=== PATIENT | male | born 1960 | race Caucasian/White ===

== ENCOUNTER 2022-02-22 07:35 | Outpatient (CLI) | payer BC, SELFPAY ==
--- NOTE | ~2022-02-22 | US_ITS ---
EXAMINATION: US retroperitoneal comp DATE: 02/22/2022 11:03 INDICATION: Stage IV chronic kidney disease TECHNIQUE: Multiple ultrasound grayscale images of the kidneys were obtained. COMPARISON: None. FINDINGS: The right kidney measures 15.1 x 6.4 x 5.2 cm. The left kidney measures 12.0 x 6.4 x 5.9 cm. The kidn eys demonstrate normal echogenicity. Severe bilateral hydronephrosis. In addition there is a 2.9 cm a nechoic cyst at the mid right kidney. No stones identified. Common at distention of the otherwise nor mal-appearing bladder. No ureteral jets visualized in the bladder on color Doppler. Incidentally note d is increased echogenicity of the liver consistent with diffuse hepatic steatosis.. IMPRESSION: 1. Prominent distention of the bladder with severe bilateral hydronephrosis which suggests either ch ronic bladder outlet obstruction or neurogenic bladder. 2. Diffuse hepatic steatosis. Reviewed, dictated and finalized at location A. IMPRESSION: 1. Prominent distention of the bladder with severe bilateral hydronephrosis wh ich suggests either chronic bladder outlet obstruction or neurogenic bladder. 2. Diffuse hepatic steatosis.
== END 2022-02-22 07:36 | disposition home or self-care (01) ==
LOC: ANHIMG 07:37
PROVIDERS: PCP Internal Medicine; Visit Provider Internal Medicine
DX: N18.4 Chronic kidney disease, stage 4 (severe) (principal); K76.0 Fatty (change of) liver, not elsewhere classified
CPT/HCPCS: 76770

== ENCOUNTER 2022-06-05 07:33 | Outpatient (CLI) | payer BC, SELFPAY ==
--- NOTE | ~2022-06-05 | US_ITS ---
EXAMINATION: US renal BI, US retroperitoneal duplex ltd DATE: 06/05/2022 08:56 INDICATION: Stage IV chronic kidney disease. Hypertension. TECHNIQUE: 1. Multiple grayscale and color Doppler images of the kidneys were obtained. 2. Multiple grayscale and pulsed Doppler images of the aorta and renal arteries were obtained. COMPARISON: 02/22/2022 FINDINGS: Kidneys: The right kidney measures 10.6 x 5.0 x 4.9 cm. The left kidney measures 12.5 x 6.6 x 6.0 cm. The kidn eys demonstrate normal echogenicity. 2.0 cm exophytic cyst at the interpolar region of the right kidn ey. Again seen is severe bilateral hydronephrosis with some interval improvement on the right.. No s tones identified. The bladder is distended with bilateral ureteral jets visualized with color Doppler .. Renal arteries/vascular: The aorta peak systolic velocity is 126 cm/s. The right renal artery peak systolic velocity is 102 cm /s in the proximal segment, 46 cm/s in the mid segment, and 61 cm/s in the distal segment. The left r enal artery peak systolic velocity is 210 cm/s in the proximal segment, 58 cm/s in the mid segment, a nd 40 cm/s in the distal segment. IMPRESSION: 1. Persistent prominent distention of the bladder with severe bilateral hydronephrosis despite the pr esence of bilateral ureteral jets which suggests either bladder outlet obstruction or neurogenic blad ezequiel. 2. Elevated peak systolic velocities at the proximal left renal artery consistent with a >50-60% sten osis. Reviewed, dictated and finalized at location L. ESS ASSOCIATE IMPRESSION: 1. Persistent prominent distention of the bladder with severe bilateral hydrone phrosis despite the presence of bilateral ureteral jets which suggests either b ladder outlet obstruction or neurogenic bladder. 2. Elevated peak systolic velocities at the proximal left renal artery consiste nt with a >50-60% stenosis.
== END 2022-06-05 07:34 | disposition home or self-care (01) ==
PROVIDERS: PCP Internal Medicine; Visit Provider Internal Medicine Nephrology
DX: I12.9 Hypertensive chronic kidney disease with stage 1 through stage 4 chronic kidney disease, or unspecified chronic kidney disease (principal); N18.4 Chronic kidney disease, stage 4 (severe)
CPT/HCPCS: 76775; 93976

== ENCOUNTER → 2023-04-10 07:37 | Outpatient (CLI) | payer BC, SELFPAY ==
--- NOTE | ~2023-04-10 | US_ITS ---
US renal BI 04/10/2023 08:29 Procedure: Realtime transabdominal ultrasound of the kidneys and bladder. Indication: Atonic motor neuropathic bladder. Hypertension. Chronic renal disease. Comparison: Ultrasound dated 06/05/2022 Findings: There is severe right hydronephrosis. There is 1.6 cm right renal cyst. Left renal echotext ure is normal. There is severe left hydronephrosis. There is right renal jet identified. No enlargeme nt of the prostate gland. Prevoid volume in the bladder is 929 cc. Postvoid volume 670 cc. Impression: 1: Severe bilateral hydronephrosis. 2: Large post void residual measures 670 cc. Reviewed, dictated and finalized at location B. Impression: 1: Severe bilateral hydronephrosis. 2: Large post void residual measures 670 cc.
== END ==
PROVIDERS: PCP Internal Medicine; Visit Provider Internal Medicine Nephrology
DX: N31.2 Flaccid neuropathic bladder, not elsewhere classified (principal); I12.9 Hypertensive chronic kidney disease with stage 1 through stage 4 chronic kidney disease, or unspecified chronic kidney disease; N18.4 Chronic kidney disease, stage 4 (severe); R31.9 Hematuria, unspecified; R80.9 Proteinuria, unspecified
CPT/HCPCS: 76775

== ENCOUNTER 2023-04-24 13:24 | Emergency (ER) | payer BC, SELFPAY ==
[2023-04-24 13:29] VITALS: BP 145/72; PULSE 109; RESP 20; TEMP 36.3; O2SAT 98
--- NOTE | 2023-04-24 14:30 | PC.NURSE ---
pt c/o intense pain with bladder irrigated with 60 cc of ns. states lee from tip of his penis and [facility] down. unable to tolerate. dr. chris notified.
[2023-04-24 14:40] LABS: Appearance Urine Cloudy (Clear); Bilirubin Urine 1+ (Negative); Blood Urine 3+ (Negative); Color Urine Red (Yellow); Glucose Urine UA Negative (Negative); Ketones Urine Negative (Negative); Leukocyte Esterase Ur 1+ LEU/UL (Negative); Nitrate Urine Negative (Negative); Protein Urine 3+ mg/dL (Negative); Urobilinogen Urine 0.2 mg/dL (<2.0); pH Urine 6.5 (5.0-9.0)
--- NOTE | 2023-04-24 14:54 | ED.MALEGU ---
HPI - Male Genitourinary General Chief complaint: Urogenital-Male Stated complaint: catheter problems Time Seen by Provider: 04/24/23 14:08 History of Present Illness HPI Narrative: Patient is a 62-year-old male with history of urinary retention who intermittently self caths who presents ER with hematuria. He had a Hendrix catheter placed 2 days ago so he could have a nuc med study tomorrow. When it was placed he was found to have UTI and started on Bactrim. He also had blood started coming out of the catheter. The blood was clearing up the urine and the catheter was clear this morning. After going to work he started bleeding again. There was some clots passed as well. Anytime he feels movement he has pain in his penis and suprapubic region. Related Data Allergies Allergy/AdvReac Type Severity Reaction Status Date / Time No Known Allergies Allergy Verified 04/24/23 14:55 Review of Systems Constitutional: Constitutional: Denies chills and Denies fever(s) Gastrointestinal: Gastrointestinal: Denies abdominal pain, Denies nausea and Denies vomiting Genitourinary: Genitourinary: Reports hematuria, Denies testicular pain and Denies urinary frequency PMFSH Past Medical History Medical History (Updated 04/24/23 @ 16:20 by Alec Vogel MD) HTN (hypertension) Right arm fracture Surgical History Surgical History (Updated 06/16/19 @ 19:17 by Trever Breaux) History of open reduction and internal fixation (ORIF) procedure RUE Social History Social History (Updated 06/16/19 @ 19:18 by Trever Breaux) Smoking status: Never smoker Exam Narrative: GENERAL: Well-appearing, well-nourished, and in no acute distress. HEAD: Normocephalic, atraumatic. CHEST: Clear to auscultation. No respiratory distress. HEART: Regular rate and rhythm. N Normal peripheral pulses. ABDOMEN: Soft, nontender, nondistended. : Normal-appearing penis with Hendrix catheter coming from the urethra. There is clear and bloody urine present in the leg bag. EXTREMITIES: Normal range of motion. No edema. NEURO: Alert and oriented x3. PSYCH: Normal mood and affect. Course Course Emergency Course: Discussed case with Juan David with urology. Recommend starting ditropan for bladder spasm for pain. Continue antibiotics. Vital Signs Vital signs: Vital Signs Temperature 97.4 F L 04/24/23 13:29 Pulse Rate 109 H 04/24/23 13:29 Respiratory Rate 20 04/24/23 13:29 Blood Pressure 145/72 H 04/24/23 13:29 Pulse Oximetry 98 04/24/23 13:29 Oxygen Delivery Room Air 04/24/23 13:29 Temperature 97.4 F L 04/24/23 13:29 Pulse Rate 109 H 04/24/23 13:29 Respiratory Rate 20 04/24/23 13:29 Blood Pressure 145/72 H 04/24/23 13:29 Pulse Oximetry 98 04/24/23 13:29 Oxygen Delivery Room Air 04/24/23 13:29 MDM - Male Genitourinary Lab Data Labs: Lab Results 04/24/23 Range/Units 14:21 Urine Color Red H (Yellow) Urine Appearance Cloudy H (Clear) Urine pH 6.5 (5.0-9.0) Ur Specific [place] 1.020 (1.001-1.035) Urine Protein 3+ H (Negative) mg/dL Urine Glucose (UA) Negative (Negative) mg/dL Urine Ketones Negative (Negative) mg/dL Ur Blood (Man) 3+ H (Negative) Urine Nitrate Negative (Negative) Urine Bilirubin 1+ H (Negative) Urine Urobilinogen 0.2 (<2.0) mg/dL Add Ur Microanalysis Reviewed Leukocyte Esterase Rfl 1+ H (Negative) LUDIVINA/UL Urine RBC >100 H (0-2) /hpf Urine WBC >100 H /hpf Ur Squamous Epith Cells None seen (Few) /hpf Urine Bacteria 1+ H /hpf Urine Casts 0-2 Urine Characteristics Clots Discharge Plan Discharge Clinical Impression: Bladder spasm, Hematuria Patient Disposition: Home, Self-Care Condition: Stable Instructions: Hematuria (ED) Additional Instructions: It is felt your pain is related to bladder spasms. Take Ditropan 3 times a day to help wi
[2023-04-24 14:55] LABS: Bacteria Urine 1+ /hpf; Need Manual Microscopic Reviewed; Non Pathogenic Casts 0-2; RBC Urine >100 /hpf (0-2); Squamous Epithelial Cell Urine None seen /hpf (Few); WBC Urine >100 /hpf
[2023-04-24 14:56] LABS: Add Urine Microscopic? YES
[2023-04-24] MEDS: oxyBUTYnin CHLORIDE 5 MG TABLET PO (15:12)
== END 2023-04-24 16:40 | disposition home or self-care (01) ==
PROVIDERS: Emergency Provider Emergency Medicine; PCP Internal Medicine
DX: R31.9 Hematuria, unspecified (principal); N32.89 Other specified disorders of bladder; I10 Essential (primary) hypertension
CPT/HCPCS: 81001; 87086; 99283; A9270

== ENCOUNTER 2023-04-25 12:43 | Outpatient (CLI) | payer BC, SELFPAY ==
--- NOTE | ~2023-04-25 | NM_ITS ---
EXAMINATION: JIA balderas renal scan DATE: 04/25/2023 14:07 INDICATION: Bilateral hydronephrosis TECHNIQUE: 7.8 mCi Tc-99m MAG3 was administered IV. 40 mg furosemide was administered IV immediately afterward. A posterior abdominal radionuclide angiogram was obtained. A subsequent time course of st atic images of the kidneys, ureters, and bladder was obtained. COMPARISON: None FINDINGS: The posterior abdominal radionuclide angiogram and sequential static images show normal size, positio n, and morphology of the kidneys. Peak renal parenchymal uptake was 15.5 min in left kidney and 28.5 min in right kidney (normal peak 3-5 minutes). The relative early renal uptake was 69% on the left a nd 31% on the right (<40% is abnormal). No abnormalities of the ureters or bladder are seen. T1/2 for clearance of activity from the left kidney and proximal collecting system was >30 minutes. T1/2 for clearance of activity from the right kidney and proximal collecting system was indeterminate with continually rising activity curve . Notes on interpretation: T1/2 <10 minutes is normal, 10-15 minutes is low grade obstruction of questi onable clinical significance, 15-20 minutes is partial obstruction that is likely clinically signific ant, >20 minutes is high grade obstruction. Note that false positives may be seen with supine positio sierra, dehydration, severely dilated nonobstructed kidney, atonic collecting system, poor renal functi on, and chronic furosemide use. IMPRESSION: 1. Decreased left renal function which contributes only 31% of total renal activity. 2. Severely delayed activity clearance from both kidneys, right greater than left which could be due to high-grade obstruction with bilaterally suggesting at the level of the bladder/bladder outlet, di lated atonic collecting system, poor renal function or some combination thereof. Reviewed, dictated and finalized at location A. BERRY FARM SUPERVISOR IMPRESSION: 1. Decreased left renal function which contributes only 31% of total renal act ivity. 2. Severely delayed activity clearance from both kidneys, right greater than l eft which could be due to high-grade obstruction with bilaterally suggesting at the level of the bladder/bladder outlet, dilated atonic collecting system, poo r renal function or some combination thereof.
== END 2023-04-25 12:44 | disposition home or self-care (01) ==
PROVIDERS: PCP Internal Medicine; Visit Provider Urology
DX: N13.30 Unspecified hydronephrosis (principal)
CPT/HCPCS: 78708; A9562; J1940

== ENCOUNTER 2023-11-05 09:55 | Emergency (ER) | payer BC, SELFPAY ==
[2023-11-05] VITALS (14 sets, daily range): BP systolic 97–134; BP diastolic 74–89; PULSE 68–97; RESP 12–21; TEMP 37; O2SAT 96–100
--- NOTE | ~2023-11-05 | XR_ITS ---
Clinical Indication: Chest pain PA and lateral views of the chest: Comparison: None Findings: The lungs are clear, without evidence of focal consolidation or pleural effusion. Cardiome diastinal silhouette is within normal limits. Bones and soft tissues are unremarkable. Impression: Normal chest. Reviewed, dictated and finalized at location . Impression: Normal chest.
--- NOTE | ~2023-11-05 | CT_ITS ---
EXAMINATION: CT abdomen pelvis wo con DATE: 11/05/2023 11:09 INDICATION: Abdominal pain. Nausea and vomiting. TECHNIQUE: Computed tomography (CT) of the abdomen and pelvis was performed without intravenous contr ast. Automated exposure control and iterative reconstruction technique were employed. The dose-length product was 614.41 mGy-cm. COMPARISON: None. FINDINGS: The visualized portions of the lung bases demonstrate mild atelectasis. No pleural effusion . The heart size is normal. There are coronary artery calcifications. No pericardial effusion. There is diffuse hepatic steatosis. The gallbladder, spleen, pancreas, and adrenal glands are normal. There is cortical thinning of the kidneys. There is a 12 mm cyst in right kidney. There is a 2 mm stone ri ght kidney. There is mild left hydronephrosis. There is diffuse bladder wall thickening, likely secon charis to chronic outlet obstruction from the moderately enlarged prostate. There are bilateral inguina l hernias containing fat. There is diverticulosis of the colon without evidence of diverticulitis. Th ere are no dilated loops of bowel. The appendix is normal. There is calcified atherosclerosis of the aorta and many of the other arteries. There is no free intraperitoneal fluid. 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 There is 11 mm anterolisthesis of L4 on L5. There is severe lumbar spondylosis . IMPRESSION: 1. Mild left hydronephrosis. 2. Diffuse hepatic steatosis. 3. Bilateral inguinal hernias containing fat. Reviewed, dictated and finalized at location A.
--- NOTE | 2023-11-05 09:57 | ECG_ITS ---
SEE SCANNED COPY FOR CONFIRMED REPORT MTDD
--- NOTE | 2023-11-05 10:03 | ED.CHESTPAIN ---
HPI - Chest Pain General Chief Complaint: Chest Pain Stated Complaint: CP Time Seen by Provider: 11/05/23 09:58 History of Present Illness HPI narrative: Patient states that for the last week he has been having intermittent chest pain, on Saturday he actually passed out several times, and threw up black emesis and had dark stools, he is describing some discomfort around his chest and that he had been told he had kidney failure and elevated troponin. Has not had any nausea vomiting since Saturday Related Data Allergies Allergy/AdvReac Type Severity Reaction Status Date / Time No Known Allergies Allergy Verified 11/05/23 10:10 Review of Systems Review of Systems: All systems reviewed & are unremarkable except as noted in HPI and below PMFSH Past Medical History Medical History (Updated 11/05/23 @ 13:41 by Brenda Iverson MD) HTN (hypertension) Right arm fracture Surgical History Surgical History (Updated 06/16/19 @ 19:17 by Trever Breaux) History of open reduction and internal fixation (ORIF) procedure RUE Social History Social History (Updated 06/16/19 @ 19:18 by Trever Breaxu) Smoking status: Never smoker Exam Narrative: EXAMINATION OF ORGAN SYSTEMS/BODY AREAS: Constitutional: Vital signs per nursing GENERAL:[No acute distress, non-toxic appearing.] HEAD: Normal with no signs of head trauma. EYES: EOMI, conjunctiva normal ENT: Hearing grossly intact LUNGS: Nonlabored breathing. HEART: [Regular rate and rhythm] ABD: [Soft], [nontender to palpation] RECTAL: Some hemorrhoids but no tenderness; no stool in vault. EXT: Normal range of motion SKIN: [No rashes or lesions.] NEURO: [Alert and oriented x 3. No gross focal sensory or strength deficits.] PSYCH: Normal affect Course Vital Signs Vital signs: Vital Signs Temperature 98.6 F 11/05/23 10:00 Pulse Rate 97 11/05/23 10:00 Respiratory Rate 14 11/05/23 10:00 Blood Pressure 134/86 11/05/23 10:00 Pulse Oximetry 99 11/05/23 10:00 Oxygen Delivery Room Air 11/05/23 10:00 Temperature 98.6 F 11/05/23 10:00 Pulse Rate 76 11/05/23 13:55 Respiratory Rate 15 11/05/23 13:55 Blood Pressure 130/89 11/05/23 13:55 Pulse Oximetry 99 11/05/23 13:55 Oxygen Delivery Room Air 11/05/23 10:00 MDM - Chest Pain MDM Narrative Medical decision making narrative: Patient presents here after he had an episode of syncope, chest discomfort, and possible nausea and vomiting with dark vomit and stool 3 days ago. Currently asymptomatic. He had labs done outpatient with pain and at bedside was worried that his hematocrit was low and his troponin was high. Well-appearing here, in no distress, normal exam including soft, nontender abdomen, no bloody stool on exam. I will obtain a CT abdomen/pelvis, without contrast due to his kidney disease. Patient's initially requested a CT with contrast I did explain that patient has no active GI bleeding at this time and his hemoglobin is stable so it was unlikely detect anything significant, and is there is a potential possibility for contrast induced nephropathy with his creatinine of 3.0 but that if they would like to have contrast and are willing to provide consent that the and understand the risks and benefits I will order it. After some discussion they decided to just have the CT without contrast. This is unremarkable for acute abnormality. Troponins were negative twice here and patient is asymptomatic with normal EKG. Hemoglobin was within acceptable limits. I did ask to see the lab findings she was concerned about, and saw that it was about hematocrit that was barely lower than normal, and a high sensitivity troponin that was barely above negative range. Given this I feel more reassured. I do feel patient is safe for discharge at this time with strict return precautions and follow-up to his primary care doctor, student services director, territory account manager. Long discussion with kaylie
[2023-11-05 10:07] LABS: Basophils Absolute Auto 0.1 K/mm3 (0.0-0.1); Basophils Percent Auto 0.4 % (0.2-1.2); Eosinophils Absolute Auto 0.2 K/mm3 (0-0.3); Eosinophils Percent Auto 1.8 % (0-4.4); Hematocrit 40.3 % (42.0-52.0); Hemoglobin 13.4 g/dL (14.0-18.0); Immature Granulocyte Absolute 0.05 K/mm3 (0.00-0.031); Immature Granulocyte Percent A 0.4 % (0-0.5); Lymphocytes Absolute Auto 1.98 K/mm3 (0.9-3.2); Lymphocytes Percent Auto 16.5 % (18.3-44.2); Mean Corpuscular HGB Conc 33.3 g/dl (32-36); Mean Corpuscular Hemoglobin 29.7 pg (26-34); Mean Corpuscular Volume 89.4 fl (80-100); Mean Platelet Volume 10.5 fl (7.4-10.4); Monocytes Percent Auto 8.4 % (2.6-8.5); Neutrophils Absolute Auto 8.7 K/mm3 (1.3-6.7); Neutrophils Percent Auto 72.5 % (45.5-73.1); Platelet Count Result 223 k/mm3 (150-375); Red Blood Count 4.51 M/mm3 (4.6-6.20); Red Cell Distribution Width 13.8 % (11.5-14.5)
[2023-11-05 10:18] LABS: Alanine Aminotransferase 27 U/L (6-50); Albumin Level 4.9 g/dL (3.5-5.1); Alkaline Phosphatase 70 U/L (38-126); Anion Gap 10 mmol/L (4-12); Aspartate Amino Transferase 31 U/L (17-59); Bilirubin,Total 0.9 mg/dL (0.2-1.3); Blood Urea Nitrogen 50 mg/dL (9-20); Carbon Dioxide 24 mmol/L (22-30); Chloride 100 mmol/L (98-107); Estimated CRCL calculation 25 ml/min; Estimated Glomerular Filt Rate 21; Glucose 116 mg/dL (65-110); Lipase 242 U/L (23-300); Prothrombin Time 13.3 Seconds (11.1-14.7); Sodium 134 mmol/L (137-145)
[2023-11-05 10:19] LABS: Partial Thromboplastin Time 27.6 Seconds (22.3-36.8)
[2023-11-05 10:29] LABS: Troponin I < 0.012 ng/mL (0.000-0.034)
[2023-11-05] MEDS: ASPIRIN 81 MG CHEWABLE TABLET 324 MG PO (10:59)
[2023-11-05] MEDS: PANTOPRAZOLE SODIUM IV 40 MG VIAL IV PUSH (11:00)
[2023-11-05 13:37] LABS: Troponin I < 0.012 ng/mL (0.000-0.034)
== END 2023-11-05 13:59 | disposition home or self-care (01) ==
PROVIDERS: Emergency Provider Emergency Medicine; PCP Internal Medicine
DX: R07.89 Other chest pain (principal); R55 Syncope and collapse; R11.2 Nausea with vomiting, unspecified; I10 Essential (primary) hypertension
CPT/HCPCS: 36415; 71046; 74176; 80053; 83690; 84484; 85025; 85610; 85730; 93005; 96374; 99284; A9270; C9113

== ENCOUNTER 2024-03-03 02:34 | Day surgery (SDC) | payer BC, SELFPAY ==
[2024-03-02 14:16] VITALS: BMI 28.7
[2024-03-03] VITALS (16 sets, daily range): BP systolic 110–147; BP diastolic 68–90; PULSE 54–86; RESP 12–18; TEMP 36.6–36.7; O2SAT 92–97; BMI 28.8
[2024-03-03 08:49] LABS: Basophils Percent Auto 0.5 % (0.2-1.2); Eosinophils Absolute Auto 0.2 K/mm3 (0-0.3); Eosinophils Percent Auto 3.2 % (0-4.4); Hematocrit 41.1 % (42.0-52.0); Hemoglobin 13.8 g/dL (14.0-18.0); Immature Granulocyte Absolute 0.02 K/mm3 (0.00-0.031); Immature Granulocyte Percent A 0.3 % (0-0.5); Lymphocytes Absolute Auto 1.07 K/mm3 (0.9-3.2); Lymphocytes Percent Auto 16.4 % (18.3-44.2); Mean Corpuscular HGB Conc 33.6 g/dl (32-36); Mean Corpuscular Hemoglobin 29.3 pg (26-34); Mean Corpuscular Volume 87.3 fl (80-100); Mean Platelet Volume 10.2 fl (7.4-10.4); Monocytes Absolute Auto 0.6 K/mm3 (0.1-0.6); Monocytes Percent Auto 9.1 % (2.6-8.5); Neutrophils Absolute Auto 4.6 K/mm3 (1.3-6.7); Neutrophils Percent Auto 70.5 % (45.5-73.1); Platelet Count Result 171 k/mm3 (150-375); Red Blood Count 4.71 M/mm3 (4.6-6.20); Red Cell Distribution Width 12.8 % (11.5-14.5); White Blood Count 6.5 K/mm3 (4.5-10.0)
[2024-03-03 09:03] LABS: Anion Gap 15 mmol/L (4-12); Blood Urea Nitrogen 33 mg/dL (9-20); Calcium 8.9 mg/dL (8.4-10.2); Carbon Dioxide 21 mmol/L (22-30); Chloride 99 mmol/L (98-107); Estimated CRCL calculation 29 ml/min; Estimated Glomerular Filt Rate 26; Glucose 94 mg/dL (65-110); Potassium 4.4 mmol/L (3.4-5.0); Sodium 135 mmol/L (137-145)
--- NOTE | 2024-03-03 09:09 | WPDHPUPDATE1 ---
History and Physical Update Update Date/Time: 03/03/24 09:09 History and Physical has been reviewed, including an updated exam of the patient. There are NO changes in the patient's condition. Risks, benefits, and alternatives have been discussed and questions answered. Patient agrees to proceed with procedure.
[2024-03-03] MEDS: SODIUM CHLORIDE 0.9% IV 500 ML 125 ML IV CONT (09:10)
--- NOTE | 2024-03-03 09:10 | WPDMODSED ---
Moderate Sedation Note-Pt Data Patient Data Diagnosis: ABNORMAL STRESS TEST Present Complaint: CHEST PAIN Procedure to be performed/Plan: lhc +- PCI Allergies Allergy/AdvReac Type Severity Reaction Status Date / Time No Known Allergies Allergy Verified 03/03/24 08:33 Home Medications Medication Instructions Recorded Confirmed Type pantoprazole 40 mg tablet,delayed 40 mg PO DAILY 03/02/24 03/03/24 History release rosuvastatin 10 mg tablet 10 mg PO DAILY 03/02/24 03/03/24 History valsartan 160 1 tablet PO DAILY 03/02/24 03/02/24 History mg-hydrochlorothiazide 12.5 mg tablet Current Medications: Active Medications Sodium Chloride (Normal Saline Iv) 500 mls @ 100 mls/hr IV CONT .Q5H [facility] Sedation/Anesthesia: No previous sedation/anesthesia problems (including family history). [facility] Past Medical History Medical History HTN (hypertension) Right arm fracture Surgical History Surgical History History of open reduction and internal fixation (ORIF) procedure RUE Social History Social History Smoking status: Never smoker Alcohol intake: current Drinks per week: 30 Substance use: never Substance use type: does not use Living arrangements: with family Spiritual care concerns: No Mod Sed Physical Exam Physical Exam Pre Procedural Exam: Normal: Appearance, Eyes, Airway, Lungs and Heart Rate Hours since solid foods: 12 Hours since liquid intake: 8 Mallampati Classification: class II Internal Medicine - PN: Obj Da Vital Signs Vital Signs: Vital Signs - 24 hr 03/03/24 08:55 Temperature 36.7 C Pulse Rate 68 Respiratory Rate 12 Blood Pressure 145/87 H Pulse Oximetry 97 Oxygen Delivery Room Air Meds/Results Medications: Active Medications Generic Name Dose Route Start Last Admin Trade Name Freq PRN Reason Stop Dose Admin Sodium Chloride 500 mls @ 100 mls/hr 03/03/24 08:30 Normal Saline Iv IV CONT .Q5H [facility] 03/03/24 08:36 03/03/24 08:36 Labs: Laboratory Results - last 24 hr 03/03/24 08:36 WBC 6.5 RBC 4.71 Hgb 13.8 L Hct 41.1 L MCV 87.3 MCH 29.3 MCHC 33.6 RDW 12.8 Plt Count 171 MPV 10.2 Immature Gran % (Auto) 0.3 Neut % (Auto) 70.5 Lymph % (Auto) 16.4 L Motley % (Auto) 9.1 H Eos % (Auto) 3.2 Baso % (Auto) 0.5 Lymph # (Auto) 1.07 Motley # (Auto) 0.6 Eos # (Auto) 0.2 Baso # (Auto) 0.0 Abs Immat Gran (auto) 0.02 Absolute Neuts (auto) 4.6 Absolute Nucleated RBC 0.000 Nucleated RBC % 0.0 Sodium 135 L Potassium 4.4 Chloride 99 Carbon Dioxide 21 L Anion Gap 15 H BUN 33 H D Creatinine 2.50 H Estim Creat Clear Calc 29 Estimated GFR 26 L Glucose 94 Calcium 8.9 ASA Classification/Sedation ASA Classification/Sedation ASA Class: III Emergent: No Risks: Risks, benefits and alternatives explained and patient/family accepted plan for sedation. Patient re-evaluated immediately prior to sedation.
--- NOTE | 2024-03-03 09:17 | WPDCARDPROC ---
Cardiac Cath Procedure Note Date of procedure:: 03/03/24 Performing physician:: CATHETERIZATION LABORATORY REPORT Procedure Date: 03/03/2024 Referring Physician: Dr. Peñaloza Anesthesia: Versed and Fentanyl were ordered and given in my presence at 0952, procedure ended at 1020 Supervision of nurse monitored moderate sedation with 2mg Versed and 100mcg Fentanyl was provided for 28 minutes administered by Shirley George RN Pre-op Diagnosis: CAD Post-op Diagnosis: CAD Procedure(s): Left heart catheterization with coronary angiography Access Site: Right radial artery Brief History and Clinical Indications: 63 yo man referred for abnormal stress echocardiogram here for [facility] All risks, benefits and alternatives to left heart catheterization with or without percutaneous coronary intervention was discussed at length with the patient. Risk of complications including but not limited to bleeding, infection, arrhythmia, stroke, worsening kidney function, blood loss, groin hematoma, limb loss, emergency coronary artery bypass grafting, and even were discussed with the patient and all questions were answered. The patient understood and wished to proceed. Time out called, patient name, date of , medical record number, allergies, procedure performed, identify Printer Technician, patient and staff member concurred with accurate data, procedure carried on. Findings: LEFT HEART CATHETERIZATION FINDINGS: 1. Left main: The left main coronary artery is widely patent without any significant obstructive disease. 2. Left anterior descending: The LAD is free of angiographic significant disease in its proximal body. The mid body is tortuous with 30-40% stenosis around a tortuous bend. The remainder of the vessel has 10-20% stenosis. There is one large diagonal branch that has mild luminal irregularities. The remaining diagonal branches are diminutive. 3. Left circumflex: The left circumflex artery is a moderate caliber and nondominant vessel that gives rise to 2 main OM branches that have 20-30% stenosis. 4. Right coronary artery: The RCA is a large dominant vessel with 30-40% stenosis in the proximal body. The rPDA has 30-40% stenosis. The rPL branch has 10-20% stenosis. 5. Left ventricle: Given the tortuous nature of his aorta, the aortic valve was not crossed and no LVEDP was measured Description of Procedure: Informed consent signed and placed in the chart. Patient transferred to micro lab analyst room. Prepped and draped in usual sterile fashion. 2% lidocaine injected subcutaneously in right wrist. 6-FR sheath placed in the right radial artery. A radial cocktail consisting of nitroglycerin 100mcg, verapamil 2.5mg, and heparin 5000U was given through the radial sheath. A 5Fr diagnostic TIG catheter was used; however given significant tortuosity, a 5Fr JR4 catheter was used to engaged to right coronary artery. A 5Fr JL4 catheter was used; however, was switched out for a 5Fr JL3.5 catheter to engage the left main coronary artery. A 5Fr pigtail was used to attempt to cross the aortic valve; however, given significant tortuosity, the valve was ultimately not crossed. Hemostasis was achieved by TR band at the end of procedure. Assessment: CAD Post Operative Condition: Stable No significant blood loss Disposition: Home Plan: The patient will be monitored in the recovery area and discharged home after recovery. The above findings were discussed with the referring physician. Continue aggressive medical therapy and risk factor modification. Brayden Cabrera Interventional Cardiology
[2024-03-03] MEDS: SODIUM CHLORIDE 0.9% IV 1,000 ML 125 ML IV CONT (11:30)
== END 2024-03-03 14:40 | disposition home or self-care (01) ==
PROVIDERS: PCP Internal Medicine; Visit Provider Internal Medicine
PROC: (CPT 93454; principal; 2024-03-03 10:00)
DX: I25.10 Atherosclerotic heart disease of native coronary artery without angina pectoris (principal); R94.39 Abnormal result of other cardiovascular function study; I10 Essential (primary) hypertension
CPT/HCPCS: 36415; 80048; 85025; 93454; C1769; C1887; C1894; J1644; J2250; J2305; J3010; J7030; J7040

== ENCOUNTER 2024-08-27 18:36 | Emergency (ER) | payer BC, SELFPAY ==
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
[2024-08-27 18:53] VITALS: BP 128/89; PULSE 88; RESP 16; TEMP 36.7; O2SAT 98
== END 2024-08-27 20:01 | disposition home or self-care (01) ==
PROVIDERS: Emergency Provider Nurse Practitioner Family; PCP Internal Medicine
DX: S63.502A Unspecified sprain of left wrist, initial encounter (principal); S66.912A Strain of unspecified muscle, fascia and tendon at wrist and hand level, left hand, initial encounter; V19.9XXA Pedal cyclist (driver) (passenger) injured in unspecified traffic accident, initial encounter; S43.402A Unspecified sprain of left shoulder joint, initial encounter; S63.614A Unspecified sprain of right ring finger, initial encounter; I10 Essential (primary) hypertension
CPT/HCPCS: 73030; 73110; 73140; 99214; G0463

== ENCOUNTER 2025-03-22 06:51 | Emergency (ER) | payer BC, SELFPAY ==
[2025-03-22 06:44] VITALS: BP 156/91; PULSE 110; RESP 15; TEMP 37.3; O2SAT 96
[2025-03-22 07:06] LABS: Hematocrit 45.1 % (42.0-52.0); Hemoglobin 14.7 g/dL (14.0-18.0); Immature Granulocyte Percent A 0.7 % (0-0.5); Lymphocytes Absolute Auto 1.48 K/mm3 (0.9-3.2); Mean Corpuscular HGB Conc 32.6 g/dl (32-36); Mean Corpuscular Hemoglobin 27.8 pg (26-34); Mean Corpuscular Volume 85.3 fl (80-100); Nucleated Red Blood Cells Absolute Auto 0.000 K/mm3 (0.0-0.012); Nucleated Red Blood Cells Perc 0.0 % (0.0-0.2); Platelet Count Result 173 k/mm3 (150-375); Red Blood Count 5.29 M/mm3 (4.6-6.20); White Blood Count 8.7 K/mm3 (4.5-10.0)
[2025-03-22 07:15] LABS: INR 1.0; Prothrombin Time 13.1 Seconds (11.1-14.7)
[2025-03-22 07:16] LABS: Partial Thromboplastin Time 28.4 Seconds (22.3-36.8)
[2025-03-22 07:21] VITALS: BP 154/99; PULSE 100; RESP 20; O2SAT 93
[2025-03-22 07:25] LABS: Alanine Aminotransferase 43 U/L (6-50); Albumin Level 4.4 g/dL (3.5-5.1); Alkaline Phosphatase 93 U/L (38-126); Anion Gap 12 mmol/L (4-12); Aspartate Amino Transferase 44 U/L (17-59); Bilirubin,Total 0.6 mg/dL (0.2-1.3); Blood Urea Nitrogen 31 mg/dL (9-20); Calcium 9.2 mg/dL (8.4-10.2); Carbon Dioxide 22 mmol/L (22-30); Chloride 100 mmol/L (98-107); Estimated CRCL calculation 31 ml/min; Estimated Glomerular Filt Rate 29; Glucose 134 mg/dL (65-110); Potassium 3.8 mmol/L (3.4-5.0); Sodium 134 mmol/L (137-145); Total Protein 8.0 g/dL (6.3-8.2)
--- OUTSIDE RECORDS SUMMARY | 2025-03-22 08:41 | XMS_ITS | Clinical Summary ---
Author Organization [facility] A Address [address] [place] [address] Care Team Providers Care Ironmolder Name Role Phone Jesús Burr MD Primary Care Provider Allergies No known active allergies Medications aspirin 81 mg enteric coated tabletIndications :prevention of thrombosis Take 1 tablet (81 mg total) by mouth daily 12/24/19 24 Active rosuvastatin (CRESTOR) 10 mg tabletIndications :Hyperlipidemia LDL goal <70,Coronary artery calcification seen on CT scan TAKE 1 TABLET(10 MG) BY MOUTH DAILY 30 tablet 6 11/04/[address] (PROTONIX) 40 mg EC tabletIndications :UGI bleed TAKE 1 TABLET(40 MG) BY MOUTH DAILY 30 tablet 6 11/04/19 25 Active valsartan-hydroCH LOROthiazide (DIOVAN-HCT) 160-12.5 mg per tablet TAKE 1 TABLET BY MOUTH DAILY 90 tablet 1 02/27/20 25 Active valsartan-hydroCH LOROthiazide (DIOVAN-HCT) 160-12.5 mg per tablet Take 1 tablet by mouth daily 90 tablet 3 08/19/19 24 025 Discontinued Active Problems Problem Noted Date Diagnosed Date UGI bleed 11/06/2023 Coronary artery calcification seen on CT scan Hyperlipidemia LDL goal <70 11/06/2023 Syncope and collapse 11/06/2023 Urinary frequency 08/19/2023 Family history of colon cancer in mother 022 Overview (09/06/2021): Added automatically from request for surgery [id number] Personal history of colonic polyps 09/06/2021 Overview (09/06/2021): Added automatically from request for surgery [id number] Encounter for screening colonoscopy 09/06/2021 Overview (09/06/2021): Added automatically from request for surgery [id number] Alcohol abuse 07/21/2020 Hypertension 10/14/2012 Overview (09/21/2016): Uncontrolled hypertension, stage 1 Resolved Problems Problem Noted Date Diagnosed Date Resolved Date Chest pain 11/06/2023 08/24/2024 Chronic kidney disease (CKD) , stage IV (severe) 08/14/2021 08/24/2024 Encounters Date Type Department Care Team Description 02/18/2025 8:30 AM CDT Office Visit [facility] Cardiology at [address] [place] [address] Gutierrez Peñaloza MD Coronary artery calcification seen on CT scan (Primary Dx); Hyperlipidemia LDL goal <70; Primary hypertension; Syncope and collapse from Last 3 Months Immunizations Immunization Administration Dates Next Due Influenza, Unspecified 08/24/2024(Deferr ed: Patient Refused),08/19/2023(Deferred: Patient Refused),08/15/2022,08/14/2021(Deferred: Patient Refused),03/17/2021,02/07/2021(Deferred: Patient Refused),03/17/2020(Deferred: Patient Refused),03/17/2020(Deferred: Patient Refused) Tdap 07/21/2020 Surgical History Surgery Date Site/Laterality Comments COLONOSCOPY 5 yrs ago Medical History Medical History Date Comments Hypertension Hypertension Family History Medical History Relation Name Comments Heart disease Father Heart disease; Colon cancer Mother Cancer, colon; Hypertension Mother Hypertension; Other Other 1 No family histo ry of Diabetes mellitus; Other Other 2 No family histo ry of Tuberculosis; Relation Name Status Comments Father Alive Mother Other 1 Other 2 Social History Tobacco Use Types Packs/Day Years Used Date Smoking Tobacco: Never Smokeless Tobacco: Never Tobacco Cessation:Counseling Given: Yes Alcohol Use Standard Drinks/Week Comments Yes 50 (1 standard drink = 0.6 oz pu re alcohol) AUDIT-C Answer Date Recorded Q1: How often do you have a drink containing alc ohol? Monthly or less 08/19/2023 Q2: How many drinks containi ng alcohol do you have on a typical day when you are drinking? 1 or 2 08/19/2023 Q3: How often do you have si x or more drinks on one occasion? Less than monthly 08/19/2023 PHQ-2 Answer Date Recorded PHQ-2 Total Score (If total score is 3 or more points, staff should administer the PHQ-9) 0 08/24/2024 Personal Safety Answer Date Recorded Have you ever been in or are you currently in a harmful physical or emotional relationship or is someone making you feel afraid or unsafe? 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 Gender Identity Not on file Sexual Orientation Not on file Obstetrics History Last Filed Vital Signs Vital Sign Reading Time Taken Comments Blood Pressure 124/82 02/18/2025 8:41 AM CDT Pulse 70 02/18/2025 8:41 AM CDT Temperature 36.5 C (97.7 F) 08/24/2024 8:57 AM CDT Respiratory Rate 16 08/24/2024 8:57 AM CDT Oxygen Saturation 95% 02/18/2025 8:41 AM CDT Inhaled Oxygen Concentration - - Weight 94.3 kg (208 lb) 02/18/2025 8:41 AM CDT Height 177.8 cm (5' 10) 02/18/2025 8:41 AM CDT Body Mass Index 29.84 02/18/2025 8:41 AM CDT Plan of Treatment Health Maintenance Due Date Last Done Comments Hepatitis C Screening 1960 Hepatitis B Screening 1980 Zoster Vaccine (1 of 2) 2012 Prostate Cancer Screening-PSA 01/18/2025 01/18/2023, 02/05/2022, 08/08/2021, Additional history exists Influenza Vaccine (#1) 2025 08/15/2022, 2020 Depression Screening 08/24/2025 08/24/2024, 08/19/2023, 02/12/2022, Additional history exists Regular Well Visit/Exam 18-64 08/24/2025 08/24/2024, 08/19/2023, 08/15/2022, Additional history exists DTaP/Tdap/Td Vaccine (2 - Td or Tdap) 07/21/2030 07/21/2020 Colon Cancer Screening-Colonoscopy 10/10/2031 10/09/2021 Pneumococcal vaccine <65 Aged Out No longer eligible based on patient's age to complete this topic Procedures Procedure Name Priority Date/Time Associated Diagnosis Comments PSA SCREEN Routine 01/18/2023 8:50 AM CDT Annual physical exam COLONOSCOPY 10/09/2021 10:17 AM CDT from Last 3 Months or Most Recently Relevant to Health Maintenance Results * (ABNORMAL) PSA screen (01/18/2023 8:50 AM CDT) PSA-Total 5.62(H) <=5.40 ng/mL [facility] Comment: Interpretive Data AGE SEX REFERENCE INTERVAL 0 minutes-150 years Female None 0 minutes-49 years Male None 50-59 years Male 0-3.90 60-69 years Male 0-5.40 70-79 years Male 0-6.20 80-150 years Male 0-6.20 The [employer] PSA Total assay procedure was used. Results from different manufacturers or methods may not be comparable. Serial testing should be performed using the same method. Current interpretive data last revised 21. Blood 01/18/2023 8:50 AM CDT 01/18/2023 3:23 PM CDT us Jesús Burr MD LAB BLOOD ORDERABLES Fi nal Result [facility] [id number] [place] [address] * COLONOSCOPY (10/09/2021 10:17 AM CDT) Anatomical Region Laterality Modality Other Narrative Procedure Note Karthikeyan Charles MD - 10/09/2021 10:17 AM CDT Digestive [facility] Patient Name: Ike Porter Procedure Date: 10/09/2021 10:17 AM Date of : 1960 Admit Type: Outpatient Age: 60 Gender: Male Attending MD: Karthikeyan Charles M.D. Room: [facility] ENDOSCOPY ROOM 2 Note Status: Finalized Patient Profile: Refer to note in patient chart for documentation of history and physical. Procedure: Colonoscopy Indications: High risk colon cancer surveillance: Personalhistory of colonic polyps, Family history of colon cancerin a first-degree relative before age 60 years, Last colonoscopy: 2016 Referring MD: Jesús Burr M.D. Providers: Karthikeyan Charles M.D. Impression: - Hemorrhoids found on perianal exam. - Diverticulosis in the sigmoid colon. - The examination was otherwise normal. - No specimens collected. Recommendation: - Discharge patient to home. - Resume previous diet. - Continue present medications. - Repeat colonoscopy in 5 years for surveillance. - Return to primary care physician as previously scheduled. Medicines: Propofol per Anesthesia Complications: No immediate complications. Estimated Blood Loss: Estimated blood loss: none. Procedure: Pre-Anesthesia Assessment: - This assessment was completed [Time ofAssessment] prior to the administration of sedation. The benefits, risks and alternatives of theprocedure and sedation were discussed and informed consentwas obtained. All questions were answered. Please referto the signed informed consent document in the medical record. The bowel preparation used was Miralax and bisacodyl tablets via single dose instruction. The scope was passed under direct vision. TheColonoscope [id number] was introduced through the anus and advanced to the the cecum, identified by appendiceal orifice and ileocecal valve. The colonoscopy was performed without difficulty. The patient tolerated the procedure well. The qualityof the bowel preparation was good. The ileocecalvalve, appendiceal orifice, and rectum werephotographed. Findings: Hemorrhoids were found on perianal exam. Multiple small and large-mouthed diverticula were found in thesigmoid colon. The exam was otherwise without abnormality. Electronically signed by Karthikeyan Charles M.D. Karthikeyan Charles M.D. 10/09/2021 11:49:22 AM Number of Addenda: 0 Note Initiated On: 10/09/2021 10:17 AM Procedure Code(s): --- Professional --- G0105, Colorectal cancer screening; colonoscopy on individual at high risk Diagnosis Code(s): --- Professional --- Z80.0, Family history of malignant neoplasm of digestive organs K57.30, Diverticulosis of large intestine without perforation orabscess without bleeding K64.9, Unspecified hemorrhoids Z86.010, Personal history of colonic polyps CPT copyright 2020 [employer]. All rights reserved. The codes documented in this report are preliminary and upon telecommunications line mechanic reviewmay be revised to meet current compliance requirements. Recognized by the [employer] for promoting quality in endoscopy Karthikeyan Charles MD ENDOSCOPY PROCEDURES Final Re sult from Last 3 Months or Most Recently Relevant to Health Maintenance Insurance [employer] ACCESS OOS [employer] ACCESS OOS Advance Directives For more information, please contact: [phone] * Full Code (Latest Code Status on File) Date Activated Date Inactivated Comments 10/09/2021 10:20 AM 10/09/2021 4:56 PM Care Teams Ironmolder Relationship Specialty Start Date End Date Jesús Burr MD PCP - General 10/14/12
--- OUTSIDE RECORDS SUMMARY | 2025-03-22 08:41 | XMS_ITS | Clinical Summary ---
Author Organization [facility] Facility Address [address] [place] [id number] Care Team Providers Care Bench Shear Operator Name Role Phone Aminah, Jesús Primary Care Provider [phone] Allergies No known active allergies Medications valsartan-hydro CHLOROthiazide (DIOVAN-HCT) 160-12.5 MG per tablet Take 1 tablet by mouth 1 (one) time each day 2 Active pantoprazole (PROTONIX) 40 MG EC tablet Take 40 mg by mouth 1 (one) time each day before breakfast Do not crush, chew, or split. Active rosuvastatin (CRESTOR) 10 MG tablet Take 10 mg by mouth 1 (one) time each day Active Active Problems No known active problems Family History Medical History Relation Comments Hypertension Brother Heart disease Father Colon cancer Mother Hypertension Mother Kidney disease Mother's Brother Relation Status Comments Brother Alive Father Mother Mother's Brother Alive Social History Tobacco Use Types Packs/Day Years Used Date Smoking Tobacco: Never Smokeless Tobacco: Never Tobacco Cessation:Counseling Given: Not Answered Alcohol Use Standard Drinks/Week Comments Yes 50 (1 standard drink = 0.6 oz pu re alcohol) Sex and Gender Information Value Date Recorded Sex Assigned at Not on file Legal Sex Male 1:51 PM EDT Gender Identity Not on file Sexual Orientation Not on file Last Filed Vital Signs Vital Sign Reading Time Taken Comments Blood Pressure 129/77 05/08/2023 3:01 PM FLAME CHANNELER Pulse 90 05/08/2023 3:01 PM FLAME CHANNELER Temperature 36.7 C (98 F) 05/08/2023 3:01 PM FLAME CHANNELER Respiratory Rate - - Oxygen Saturation 99% 05/08/2023 3:01 PM FLAME CHANNELER Inhaled Oxygen Concentration - - Weight 85.5 kg (188 lb 8 oz) 05/08/2023 3:01 PM FLAME CHANNELER Height 177.8 cm (5' 10) 05/08/2023 3:01 PM FLAME CHANNELER Body Mass Index 27.05 05/08/2023 3:01 PM FLAME CHANNELER Plan of Treatment Upcoming Encounters Date Type Department Care Team (Late st Contact Info) Description 04/19/2025 9:30 AM FLAME CHANNELER Office Visit [facility] [address] [place] [id number] Adan Armstrong MD [address] [place] [id number] Health Maintenance Due Date Last Done Comments Pneumococcal Vaccine: 50+ Years (1 of 2 - PCV) 1981 Colorectal Cancer Screening: Annual FOBT 12/06/2011 Colorectal Cancer Screening: Sigmoidoscopy 12/06/2011 Influenza Vaccine (#1) 2025 3, 03/17/2021 Colorectal Cancer Screening: Colonoscopy 10/10/2031 10/09/2021 Hepatitis B Vaccine Aged Out No longe r eligible based on patient's age to complete this topic Insurance [facility] Care Teams Bench Shear Operator Relationship Specialty Start Date End Date Jesús Burr [address] [place] [id number] PCP - General Internal Medicine 02/22/22
--- OUTSIDE RECORDS SUMMARY | 2025-03-22 08:41 | XMS_ITS | Clinical Summary ---
Author Organization [facility] Address [address] [phone] Phone Care Team Providers Care Swinging Cut Off Saw Operator Name Role Phone Jesús Burr MD Primary Care Provider Social History Tobacco Use Types Packs/Day Years Used Date Smoking Tobacco: Never Assessed Sex and Gender Information Value Date Recorded Sex Assigned at Not on file Legal Sex Male 10:16 PM CDT Gender Identity Not on file Sexual Orientation Not on file Plan of Treatment Health Maintenance Due Date Last Done Comments Hepatitis C Virus (HCV) Screening 1962 Cologuard 12/06/2007 Immunochemical Fecal Occult Blood 12/06/2007 Pneumococcal Immunization (5 0+ years) (1 of 1 - PCV) 2012 Zoster Immunization (1 of 2) 2012 PSA Discussion 2017 Colonoscopy 06/03/2023 06/03/2013 Colorectal Cancer Screening 06/03/2023 Influenza Immunization (#1) 2025 03/0 06/2022, 03/17/2021 SARS-COV-2 Immunization ( season) 2025 Respiratory Syncytial Virus (RSV) Immunization (Adult) (1 - 1-dose 75+ series) 2037 DTaP/Tdap/Td Immunization Discontinued 07/21/2020 TdaP Immunization Completed 07/21/2020 Hepatitis B Immunization Aged Out No longer eligible based on patient's age to complete this topic Human Papillomavirus (HPV) Immunization Aged Out No longer eligible based on patient's age to complete this topic Meningococcal Immunization (ACWY) Aged Out No longer eligible based on patient's age to complete this topic Rotavirus Immunization Aged Out No lo nger eligible based on patient's age to complete this topic Procedures Procedure Name Priority Date/Time Associated Diagnosis Comments HM COLONOSCOPY 06/03/2013 12:00 AM HEARING AND SPEECH ASSISTANT from Last 3 Months or Most Recently Relevant to Health Maintenance Results * HM COLONOSCOPY (06/03/2013 12:00 AM HEARING AND SPEECH ASSISTANT) 06/03/2013 us Not On File Provider PROCEDURE/MINOR SURGICAL OR DERABLES Final Result [facility] from Last 3 Months or Most Recently Relevant to Health Maintenance Care Teams Swinging Cut Off Saw Operator Relationship Specialty Start Date End Date Jesús Burr MD [address] [place] [address] [address] [place] [id number] PCP - General Internal Medicine 04/03/21
--- NOTE | 2025-03-22 09:23 | ED.GENADULT ---
HPI - General Adult General Chief complaint: Unspecified Stated complaint: bleeding varicose vein Time Seen by Provider: 03/22/25 08:09 History of Present Illness HPI narrative: Patient is a 64-year-old male who presents ER with a bleeding varicose vein to the right bueno. He just scratch the area this morning and then started hemorrhage. He is not on a blood thinner. Bleeding is now controlled. No lightheadedness or syncope. Related Data Home Medications ?Medication ?Instructions ?Recorded ?Confirmed ?Last Taken ?Type pantoprazole 40 mg tablet,delayed 40 mg PO DAILY 03/02/24 03/03/24 03/03/24 History release rosuvastatin 10 mg tablet 10 mg PO DAILY 03/02/24 03/03/24 03/03/24 History valsartan 160 1 tablet PO DAILY 03/02/24 03/02/24 03/02/24 History mg-hydrochlorothiazide 12.5 mg tablet Allergies Allergy/AdvReac Type Severity Reaction Status Date / Time No Known Allergies Allergy Verified 03/22/25 07:21 Review of Systems Constitutional: Constitutional: Reports no additional constitutional complaints Musculoskeletal: Musculoskeletal: Reports no additional musculoskeletal complaints Integumentary/Breasts: Skin/Breast: Reports system reviewed and no additional complaints, except as docu PMFSH Past Medical History Medical History Right arm fracture HTN (hypertension) Surgical History Surgical History History of open reduction and internal fixation (ORIF) procedure RUE Social History Social History Smoking status: Never smoker Alcohol intake: current Drinks per week: 30 Substance use: never Substance use type: does not use Living arrangements: with family Spiritual care concerns: No Exam Narrative: GENERAL: Well-appearing, well-nourished, and in no acute distress. HEAD: Normocephalic, atraumatic. ENT: Mucous membranes moist. EXTREMITIES: Normal range of motion. No edema. SKIN: Warm, dry, no rash. Area of scabbing right bueno from hemorrhage varicose vein. NEURO: Alert and oriented x3. PSYCH: Normal mood and affect. Course Course Emergency Course: pursestring suture placed to hopefully control any rebleed. Pressure bandage also applied. Vital Signs Vital signs: Vital Signs Temperature 99.1 F 03/22/25 06:44 Pulse Rate 110 H 03/22/25 06:44 Respiratory Rate 15 03/22/25 06:44 Blood Pressure 156/91 H 03/22/25 06:44 Pulse Oximetry 96 03/22/25 06:44 Oxygen Delivery Room Air 03/22/25 06:44 Temperature 99.1 F 03/22/25 06:44 Pulse Rate 100 03/22/25 07:21 Respiratory Rate 20 03/22/25 07:21 Blood Pressure 154/99 H 03/22/25 07:21 Pulse Oximetry 93 03/22/25 07:21 Oxygen Delivery Room Air 03/22/25 06:44 Procedures Laceration Laceration 1: Date: 03/22/25 Time: 09:25 Site: other (right bueno) Size (cm): 0.5 Description: other (bleeding varicose vein) Local Anesthetic: lidocaine 1% and with epi Amount of anesthesia used (mL): 3 ====== Skin Level ====== Skin layer closed with: nylon Size (cm): 4-0 Number of sutures: 1 Technique: other (purse string) ====== Subcutaneous Layer ====== ====== Muscle Layer ====== ====== Tendon Layer ====== Medical Decision Making Vital Signs Vital Signs: Vital Signs Temperature 99.1 F 03/22/25 06:44 Pulse Rate 110 H 03/22/25 06:44 Respiratory Rate 15 03/22/25 06:44 Blood Pressure 156/91 H 03/22/25 06:44 Pulse Oximetry 96 03/22/25 06:44 Oxygen Delivery Room Air 03/22/25 06:44 Temperature 99.1 F 03/22/25 06:44 Pulse Rate 100 03/22/25 07:21 Respiratory Rate 20 03/22/25 07:21 Blood Pressure 154/99 H 03/22/25 07:21 Pulse Oximetry 93 03/22/25 07:21 Oxygen Delivery Room Air 03/22/25 06:44 Lab Data 03/22/25 06:59 03/22/25 06:59 Labs: Lab Results 03/22/25 Range/Units 06:59 WBC 8.7 (4.5-10.0) K/mm3 RBC 5.29 (4.6-6.20) M/mm3 Hgb 14.7 (14.0-18.0) g/dL Hct 45.1 (42.0-52.0) % MCV 85.3 (80-100) fl MCH 27.8 (26-34) pg MCHC 32.6 (32-36) g/dl RDW 13.3 (11.5-14.5) % Plt Count 173 (150-375) k/mm3 MPV 10.1 (7.4-10.4) fl Immature Gran % (Auto) 0.7 H (0-0.5) % Neut % (Auto) 71.0 (45.5-73.1) % Lymph % (Auto) 17.0 L (18.3-44.2) % [place]ack[place]ord % (Auto) 8.4 (2.6-8.5) % Eos % (Auto) 2.3 (0-4.4) % Baso % (Auto) 0.6 (0.2-1.2) % Lymph # (Auto) 1.48 (0.9-3.2) K/mm3 [place]elford # (Auto) 0.7 H (0.1-0.6) K/mm3 Eos # (Auto) 0.2 (0-0.3) K/mm3 Baso # (Auto) 0.1 (0.0-0.1) K/mm3 Abs Immat Gran (auto) 0.06 H (0.00-0.031) K/mm3 Absolute Neuts (auto) 6.2 (1.3-6.7) K/mm3 Absolute Nucleated RBC 0.000 (0.0-0.012) K/mm3 Nucleated RBC % 0.0 (0.0-0.2) % PT 13.1 (11.1-14.7) Seconds INR 1.0 APTT 28.4 (22.3-36.8) Seconds Sodium 134 L (137-145) mmol/L Potassium 3.8 (3.4-5.0) mmol/L Chloride 100 (98-107) mmol/L Carbon Dioxide 22 (22-30) mmol/L Anion Gap 12 (4-12) mmol/L BUN 31 H (9-20) mg/dL Creatinine 2.29 H (0.7-1.3) mg/dL Estim Creat Clear Calc 31 ml/min Estimated GFR 29 L (59 - ) Glucose 134 H (65-110) mg/dL Calcium 9.2 (8.4-10.2) mg/dL Total Bilirubin 0.6 (0.2-1.3) mg/dL AST 44 (17-59) U/L ALT 43 (6-50) U/L Alkaline Phosphatase 93 (38-126) U/L Total Protein 8.0 (6.3-8.2) g/dL Albumin 4.4 (3.5-5.1) g/dL Discharge Plan Discharge Clinical Impression: Varicose vein of leg Patient Disposition: Home Condition: Stable Additional Instructions: You were bleeding from a varicose vein and a suture was placed to prevent rebleeding. Continue to wear the padded compressive dressing as well. Return the ER if you have uncontrolled bleeding, you have fever over 100.4? F, or you have additional concerns. Remove your suture in 1 week. Patient Language: Trinidadian Prescriptions: No Action valsartan-hydrochlorothiazide 160-12.5 mg tablet 1 tablet PO DAILY pantoprazole 40 mg tablet,delayed release (DR/EC) 40 mg PO DAILY rosuvastatin 10 mg tablet 10 mg PO DAILY aspirin 81 mg tablet,delayed release (DR/EC) 81 mg PO DAILY Qty: 90 3RF Follow-up/Referrals: Aminah,Jesús Mireles MD [Primary Care Provider] - 1 Week
[2025-03-22 09:44] VITALS: BP 152/94; PULSE 67; RESP 20; O2SAT 96
== END 2025-03-22 09:45 | disposition home or self-care (01) ==
PROVIDERS: Student in an Organized Health Care Education/Training Program; Emergency Provider Emergency Medicine; PCP Internal Medicine
DX: I83.891 Varicose veins of right lower extremity with other complications (principal); I10 Essential (primary) hypertension; Z79.82 Long term (current) use of aspirin; Z79.899 Other long term (current) drug therapy
CPT/HCPCS: 12001; 36415; 80053; 85025; 85610; 85730; 99283